=== PATIENT | male | born 2000 | race Caucasian/White ===

== ENCOUNTER 2018-08-31 22:10 | Emergency (ER) | payer OTHER ==
[~2018-08-31] VITALS: Ht 175.3 cm; Wt 72.6 kg
--- OUTSIDE RECORDS SUMMARY | ~2018-08-31 | XMS ---
Demographics + + + | Address | [address] | | | [place] [address] | + + + | Home Phone | | + + + | Preferred Language | Unknown | + + + | Marital Status | Never | + + + | Episcopalian Affiliation | Unknown | + + + | Race | White | + + + | Ethnic Group | Not or | + + + Author + + + | Author | [facility] | + + + | Organization | [facility] | + + + | Address | [address] | | | [place] [address] | + + + | Phone | | + + + Care Team Providers + + + + | Care Channel Business Manager Name | Role | Phone | + + + + | Ladan Scanlon PCP | | + + + + | Joanna Granados | PreferredProvider | | + + + + Allergies and Adverse Reactions + + +-------+ | Name | Reaction | Notes | + + +-------+ | NO KNOWN DRUG ALLERGIES | | | + + +-------+ Plan of Treatment Not available. Medications +--------+ | Active | +--------+ + + + + + + | Name | Start Date | Estimated | SIG | Comments | | | | Completion Date | | | + + + + + + | diphenhydramine | 08/20/2015 | | take 1 capsule | | | HCl 50 mg oral | | | (50 mg) by oral | | | capsule | | | route every 6 | | | | | | hours as needed | | + + + + + + | naproxen 250 mg | 02/09/2016 | | TAKE TWO | | | oral tablet | | | TABLETS BY | | | | | | MOUTH TWICE A | | | | | | DAY WITH FOOD | | | | | | FOR 3 TO 4 DAYS | | | | | | THEN 1 TABLET | | | | | | BY MOUTH TWICE | | | | | | DAILY | | + + + + + + +---------+ | | +---------+ + + + + + + | Name | Start Date | Expiration Date | SIG | Comments | + + + + + + | ibuprofen 600 | 12/01/2015 | 12/08/2015 | take 1 tablet | | | mg oral tablet | | | (600 mg) by | | | | | | oral route with | | | | | | breakfast and | | | | | | lunch | | + + + + + + | naproxen 250 mg | 01/11/2016 | 02/10/2016 | take 2 tablets | | | oral tablet | | | (500 mg) by | | | | | | oral route 2 | | | | | | times per day | | | | | | with food for | | | | | | 3-4 days, then | | | | | | 1 tablet po bid | | | | | | with food | | + + + + + + Problem List + +--------+ + | Description | Status | Onset | + +--------+ + | [place]-Schlatter's disease | Active | 01/11/2016 | | of both knees | | | + +--------+ + | Lump in chest | Active | 09/30/2016 | + +--------+ + Vital Signs +-----+-----+-----+-----+-----+-----+-----+-----+-----+----+-----+-----+-----+-----+ | Ryder | Joel | BP- | BP- | HR( | RR( | Tem | WT | HT | HC | BMI | BSA | BMI | O2 | | e | e | Sys | Ofelia | bpm | rpm | p | | | | | | | Sat | | | | (mm | (mm | ) | ) | | | | | | | Per | (%) | | | | [Hg | [Hg | | | | | | | | | shoshana | | | | | ] | ]) | | | | | | | | | til | | | | | | | | | | | | | | | e | | +-----+-----+-----+-----+-----+-----+-----+-----+-----+----+-----+-----+-----+-----+ | 09/04 | 1:2 | 116 | 62 | 85 | 24 | 99. | 154 | | | | | | 98 | | 4/2 | 9:0 | | mmH | bpm | rpm | 3 F | | | | | | | % | | 017 | 0 | mmH | g | | | | lbs | | | | | | | | | PM | g | | | | | | | | | | | | +-----+-----+-----+-----+-----+-----+-----+-----+-----+----+-----+-----+-----+-----+ | 8/8 | 11: | 102 | 70 | 87 | 16 | 98. | 150 | 69 | | 22. | 1.8 | 61. | 98 | | /20 | 09: | | mmH | bpm | rpm | 6 F | | in | | 150 | 2 | 9 % | % | | 16 | 00 | mmH | g | | | | lbs | | | 9 | m | | | | | AM | g | | | | | | | | kg/ | | | | | | | | | | | | | | | m | | | | +-----+-----+-----+-----+-----+-----+-----+-----+-----+----+-----+-----+-----+-----+ | 6/2 | 1:1 | | | 58 | 16 | 98. | 151 | 69. | | 22. | 1.8 | 62. | | | 8/2 | 7:0 | | | bpm | rpm | 1 F | | 25 | | 14 | 3 | 6 % | | | 016 | 0 | | | | | | lbs | in | | kg/ | m2 | | | | | PM | | | | | | | | | m2 | | | | +-----+-----+-----+-----+-----+-----+-----+-----+-----+----+-----+-----+-----+-----+ | 5/1 | 1:3 | 108 | 65 | 70 | 18 | 99. | 149 | 68. | | 22. | 1.8 | 64. | | | 8/2 | 9:0 | | mmH | bpm | rpm | 2 F | .25 | 75 | | 200 | 121 | 3 % | | | 016 | 0 | mmH | g | | | | | in | | 7 | | | | | | PM | g | | | | | lbs | | | kg/ | m | | | | | | | | | | | | | | m | | | | +-----+-----+-----+-----+-----+-----+-----+-----+-----+----+-----+-----+-----+-----+ | 3/3 | 1:4 | 126 | 66 | 64 | 18 | 98. | 149 | 69 | | 22. | 1.8 | 63. | | | /20 | 8:0 | | mmH | bpm | rpm | 7 F | | in | | 003 | 1 | 7 % | | | 16 | 0 | mmH | g | | | | lbs | | | 2 | m2 | | | | | PM | g | | | | | | | | kg/ | | | | | | | | | | | | | | | m | | | | +-----+-----+-----+-----+-----+-----+-----+-----+-----+----+-----+-----+-----+-----+ Social History + + + + | Name | Description | Comments | + + + + | [place] | | | + + + + | Tobacco | Never smoker | | + + + + History of Procedures + + + + | Date Ordered | Description | Order Status | + + + + | 08/06/2015 12:00 AM | IMMUNIZATION ADMIN | Reviewed | + + + + | 08/06/2015 12:00 AM | Meningococcal B (P) | Reviewed | + + + + | 10/21/2015 12:00 AM | Meningococcal B (VFC) | Reviewed | + + + + | 10/21/2015 12:00 AM | X-RAY EXAM OF FINGER(S) | Reviewed | + + + + | 09/26/2016 12:00 AM | Meningococcal B (VFC) | Reviewed | + + + + Results Summary Not available. History Of Immunizations +-------+-------+-------+------+-------+-------+-------+-------+-------+-------+-----+ | Name | Date | Mfg | Mfg | Trade | Lot# | Route | Inj | Vis | Vis | CVX | | | Admin | Name | Code | Name | | | | Given | Pub | | +-------+-------+-------+------+-------+-------+-------+-------+-------+-------+-----+ | Trume | | Pfize | PFR | Trume | [id number] | Intra | Right | | 01/16/ | 162 | | ruy | 016 | r, | | ruy | 4 | muscu | Arm | 016 | 2015 | | | MenB | | Inc. | | | | lar | | | | | +-------+-------+-------+------+-------+-------+-------+-------+-------+-------+-----+ | DTaP | 02/25/ | Not | NE | Not | | Not | Not | | | 20 | | | 1999 | Enter | | Enter | | Enter | Enter | 001 | 001 | | | | | ed | | ed | | ed | ed | | | | +-------+-------+-------+------+-------+-------+-------+-------+-------+-------+-----+ | Hib | 02/25/ | Not | NE | Not | | Not | Not | | | 48 | | | 1999 | Enter | | Enter | | Enter | Enter | 001 | 001 | | | | | ed | | ed | | ed | ed | | | | +-------+-------+-------+------+-------+-------+-------+-------+-------+-------+-----+ | IPV | 02/25/ | Not | NE | Not | | Not | Not | | | 10 | | | 1999 | Enter | | Enter | | Enter | Enter | 001 | 001 | | | | | ed | | ed | | ed | ed | | | | +-------+-------+-------+------+-------+-------+-------+-------+-------+-------+-----+ | DTaP | 05/04 | Not | NE | Not | | Not | Not | | | 20 | | | /1998 | Enter | | Enter | | Enter | Enter | 001 | 001 | | | | | ed | | ed | | ed | ed | | | | +-------+-------+-------+------+-------+-------+-------+-------+-------+-------+-----+ | Hib | 05/04 | Not | NE | Not | | Not | Not | | | 17 | | | /1998 | Enter | | Enter | | Enter | Enter | 001 | 001 | | | | | ed | | ed | | ed | ed | | | | +-------+-------+-------+------+-------+-------+-------+-------+-------+-------+-----+ | IPV | 05/04 | Not | NE | Not | | Not | Not | | | 10 | | | /1998 | Enter | | Enter | | Enter | Enter | 001 | 001 | | | | | ed | | ed | | ed | ed | | | | +-------+-------+-------+------+-------+-------+-------+-------+-------+-------+-----+ | HepB | 02/25/ | Not | NE | Not | | Not | Not | | | 08 | | | 1998 | Enter | | Enter | | Enter | Enter | 001 | 001 | | | | | ed | | ed | | ed | ed | | | | +-------+-------+-------+------+-------+-------+-------+-------+-------+-------+-----+ | HepB | 05/04 | Not | NE | Not | | Not | Not | | | 08 | | | /1999 | Enter | | Enter | | Enter | Enter | 001 | 001 | | | | | ed | | ed | | ed | ed | | | | +-------+-------+-------+------+-------+-------+-------+-------+-------+-------+-----+ | DTaP | | Not | NE | Not | | Not | Not | | | 20 | | | 000 | Enter | | Enter | | Enter | Enter | 001 | 001 | | | | | ed | | ed | | ed | ed | | | | +-------+-------+-------+------+-------+-------+-------+-------+-------+-------+-----+ | Hib | | Not | NE | Not | | Not | Not | | | 48 | | | 000 | Enter | | Enter | | Enter | Enter | 001 | 001 | | | | | ed | | ed | | ed | ed | | | | +-------+-------+-------+------+-------+-------+-------+-------+-------+-------+-----+ | HepB | | Not | NE | Not | | Not | Not | 0 | 0 | 08 | | | 000 | Enter | | Enter | | Enter | Enter | 001 | 001 | | | | | ed | | ed | | ed | ed | | | | +-------+-------+-------+------+-------+-------+-------+-------+-------+-------+-----+ | IPV | | Not | NE | Not | | Not | Not | 0 | | 10 | | | 000 | Enter | | Enter | | Enter | Enter | 001 | 001 | | | | | ed | | ed | | ed | ed | | | | +-------+-------+-------+------+-------+-------+-------+-------+-------+-------+-----+ | DTaP | 05/16 | Not | NE | Not | | Not | Not | 0 | | 20 | | | /2000 | Enter | | Enter | | Enter | Enter | 001 | 001 | | | | | ed | | ed | | ed | ed | | | | +-------+-------+-------+------+-------+-------+-------+-------+-------+-------+-----+ | Hib | 05/16 | Not | NE | Not | | Not | Not | | | 17 | | | | Enter | | Enter | | Enter | Enter | 001 | 001 | | | | | ed | | ed | | ed | ed | | | | +-------+-------+-------+------+-------+-------+-------+-------+-------+-------+-----+ | MMR | 05/16 | Not | NE | Not | | Not | Not | | | 03 | | | | Enter | | Enter | | Enter | Enter | 001 | 001 | | | | | ed | | ed | | ed | ed | | | | +-------+-------+-------+------+-------+-------+-------+-------+-------+-------+-----+ | Varic | 05/16 | Not | NE | Not | | Not | Not | | | 21 | | gm | | Enter | | Enter | | Enter | Enter | 001 | 001 | | | | | ed | | ed | | ed | ed | | | | +-------+-------+-------+------+-------+-------+-------+-------+-------+-------+-----+ | DTaP | 02/18/ | Not | NE | Not | | Not | Not | | | 20 | | | 2002 | Enter | | Enter | | Enter | Enter | 001 | 001 | | | | | ed | | ed | | ed | ed | | | | +-------+-------+-------+------+-------+-------+-------+-------+-------+-------+-----+ | IPV | 02/18/ | Not | NE | Not | | Not | Not | | | 10 | | | 2002 | Enter | | Enter | | Enter | Enter | 001 | 001 | | | | | ed | | ed | | ed | ed | | | | +-------+-------+-------+------+-------+-------+-------+-------+-------+-------+-----+ | MMR | 02/18/ | Not | NE | Not | | Not | Not | | | 03 | | | 2002 | Enter | | Enter | | Enter | Enter | 001 | 001 | | | | | ed | | ed | | ed | ed | | | | +-------+-------+-------+------+-------+-------+-------+-------+-------+-------+-----+ | Varic | 01/18/ | Not | NE | Not | | Not | Not | | | 21 | | gm | 2010 | Enter | | Enter | | Enter | Enter | 001 | 001 | | | | | ed | | ed | | ed | ed | | | | +-------+-------+-------+------+-------+-------+-------+-------+-------+-------+-----+ | Hep A | 09/21/ | Not | NE | Not | | Not | Not | | | 83 | | | 2006 | Enter | | Enter | | Enter | Enter | 001 | 001 | | | | | ed | | ed | | ed | ed | | | | +-------+-------+-------+------+-------+-------+-------+-------+-------+-------+-----+ | Hep A | 01/18/ | Not | NE | Not | | Not | Not | | | 83 | | | 2010 | Enter | | Enter | | Enter | Enter | 001 | 001 | | | | | ed | | ed | | ed | ed | | | | +-------+-------+-------+------+-------+-------+-------+-------+-------+-------+-----+ | Tdap | 01/18/ | Not | NE | Not | | Not | Not | | | 115 | | | 2010 | Enter | | Enter | | Enter | Enter | 001 | 001 | | | | | ed | | ed | | ed | ed | | | | +-------+-------+-------+------+-------+-------+-------+-------+-------+-------+-----+ | HPV | 01/18/ | Not | NE | Not | | Not | Not | | | 62 | | | 2010 | Enter | | Enter | | Enter | Enter | 001 | 001 | | | | | ed | | ed | | ed | ed | | | | +-------+-------+-------+------+-------+-------+-------+-------+-------+-------+-----+ | HPV | 03/24 | Not | NE | Not | | Not | Not | | | 62 | | | /2010 | Enter | | Enter | | Enter | Enter | 001 | 001 | | | | | ed | | ed | | ed | ed | | | | +-------+-------+-------+------+-------+-------+-------+-------+-------+-------+-----+ | HPV | 07/26/ | Not | NE | Not | | Not | Not | | | 62 | | | 2011 | Enter | | Enter | | Enter | Enter | 001 | 001 | | | | | ed | | ed | | ed | ed | | | | +-------+-------+-------+------+-------+-------+-------+-------+-------+-------+-----+ | Menac | 01/18/ | Not | NE | Not | | Not | Not | 0 | | 136 | | tra | 2010 | Enter | | Enter | | Enter | Enter | 001 | 001 | | | | | ed | | ed | | ed | ed | | | | +-------+-------+-------+------+-------+-------+-------+-------+-------+-------+-----+ | Menac | 12/29/ | Not | NE | Not | | Not | Not | | | 136 | | tra | 2014 | Enter | | Enter | | Enter | Enter | 001 | 001 | | | | | ed | | ed | | ed | ed | | | | +-------+-------+-------+------+-------+-------+-------+-------+-------+-------+-----+ | Trume | 10/20/ | Pfize | PFR | Trume | [id number] | Intra | Right | 10/20/ | 01/16/ | 162 | | ruy | 2015 | r, | | ruy | 4 | muscu | | 2015 | 2014 | | | MenB | | Inc. | | | | lar | Delto | | | | | | | | | | | | id | | | | +-------+-------+-------+------+-------+-------+-------+-------+-------+-------+-----+ | Trume | 09/26/ | Pfize | PFR | Trume | [id number] | Intra | Right | 09/26/ | 01/16/ | 162 | | ruy | 2017 | r, | | ruy | 2 | muscu | | 2017 | 2014 | | | MenB | | Inc. | | | | lar | Upper | | | | | | | | | | | | Arm | | | | +-------+-------+-------+------+-------+-------+-------+-------+-------+-------+-----+ History of Past Illness + + + + | Name | Date of Onset | Comments | + + + + | Skull Fracture | 2009 | | + + + + | thumbfracture | 2009 | right | + + + + | [place]-Schlatter's disease | 01/11/2016 | | | of both knees | | | + + + + | Lump in chest | 09/30/2016 | | + + + + | Well Child Check | Aug 06 2015 1:32PM | | + + + + | Trumenba | Aug 06 2015 1:32PM | | + + + + | Trumenba | Oct 21 2015 1:40PM | | + + + + | Finger injury, right, | Oct 21 2015 1:40PM | | | initial encounter | | | + + + + | Acute left-sided thoracic | Dec 01 2015 1:16PM | | | back pain | | | + + + + | 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, right | | | | leg | | | + + + + | 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, left leg | | | + + + + | Trumenba | Sep 26 2016 1:23PM | | + + + + | Lump in chest | Sep 26 2016 1:23PM | | + + + + Payers + + + + + +---------+ + | Insurance | Company | Plan Name | Plan | Policy | Policy | Start Date | | Name | Name | | Number | Number | Group | | | | | | | | Number | | + + + + + +---------+ + | | [employer] | [employer] | [id number] | [id number] | | N/A | | | | | | | | | | | Health/ohp | | | | | | + + + + + +---------+ + | | [employer] | [employer] | | [id number] | | N/A | | | Health | Health | | | | | + + + + + +---------+ + History of Encounters + + + + | Visit Date | Visit Type | Provider | + + + + | 09/26/2016 | Acute Illness | Ladan L. Rosselle HOOKER LASTER | + + + + | 01/11/2016 | Office Visit | Cate Cook MD | + + + + | 12/01/2015 | Same Day Appt | Ladan WAHLP | + + + + | 10/21/2015 | Same Day Appt | | + + + + | 10/21/2015 | Same Day Appt | Ladan SINGLETON | + + + + | 08/06/2015 | New Patient | Joanna Granados MD | + + + +"
--- OUTSIDE RECORDS SUMMARY | ~2018-08-31 | XMS ---
Demographics + + + | Address | [address] | | | [place] [address] | + + + | Home Phone | | + + + | Preferred Language | Unknown | + + + | Marital Status | Never | + + + | Faith Affiliation | Unknown | + + + | Race | White | + + + | Ethnic Group | Not or | + + + Author + + + | Author | [facility] | + + + | Organization | [facility] | + + + | Address | [address] | | | [place] [address] | + + + | Phone | | + + + Care Team Providers + + + + | Care Network Development Coordinator Name | Role | Phone | + + + + | Ernestine Morgan PCP | | + + + + [...] + + + + + + | Augmentin | 11/16/2016 | | take 1 tablet | | | 875-125 mg oral | | | by oral route | | | tablet | | | every 12 hours | | | | | | for 10 days | | + + + + + + | triamcinolone | 02/28/2017 | | apply to | | | acetonide 0.1 % | | | affected area | | | topical | | | by external | | | ointment | | | route 2 times a | | | | | | day for 14 | | | | | | days | | + + + + + + | ketoconazole 2 | 02/28/2017 | | apply to the | | | % topical cream | | | affected | | | | | | area(s) by | | | | | | topical route 2 | | | | | | times per day | | | | | | until clear | | + + + + + [...] | Onset | + +--------+ + | [place]-Schlatter's disease | Active | 01/11/2016 | | [...] | | e | | +-----+-----+-----+-----+-----+-----+-----+-----+-----+----+-----+-----+-----+-----+ | 02/04 | 11: | 110 | 66 | 84 | 30 | 98. | 162 | | | | | | 97 | | / | 12: | | mmH | bpm | rpm | 1 F | | | | | | | % | | 017 | 00 | mmH | g | | | | lbs | | | | | | | | | AM | g | | | | | | | | | | | | +-----+-----+-----+-----+-----+-----+-----+-----+-----+----+-----+-----+-----+-----+ | 96 | 1:4 | 108 | 70 | 75 | 30 | 98. | 161 | | | | | | 97 | | /20 | 9:0 | | mmH | bpm | rpm | 2 F | | | | | | | % | | 17 | 0 | mmH | g | | | | lbs | | | | | | | | | PM | g | | | | | | | | | | | | +-----+-----+-----+-----+-----+-----+-----+-----+-----+----+-----+-----+-----+-----+ | 6/1 | 5:3 | 104 | 70 | 102 | 30 | 98. | 152 | | | | | | 98 | | 4/2 | 7:0 | | mmH | | rpm | 3 F | | | | | | | % | | 017 | 0 | mmH | g | bpm | | | lbs | | | | | | | | | PM | g | | | | | | | | | | | | +-----+-----+-----+-----+-----+-----+-----+-----+-----+----+-----+-----+-----+-----+ | 5/3 | 3:2 | 118 | 70 | 75 | 30 | 98. | 153 | | | | | | 98 | | 1/2 | 8:0 | | mmH | bpm | rpm | 2 F | | | | | | | % | | 017 | 0 | mmH | g | | | | lbs | | | | | | | | | PM | g | | | | | | | | | | | | +-----+-----+-----+-----+-----+-----+-----+-----+-----+----+-----+-----+-----+-----+ | 4/2 | 1:2 | 116 | 62 | [...] 7 F | | in | | 00 | 1 | 7 % | | | 16 | 0 | mmH | g | | | | lbs | | | kg/ | m2 | | | | | PM | g | | | | | | | | m2 | | | | +-----+-----+-----+-----+-----+-----+-----+-----+-----+----+-----+-----+-----+-----+ Social History + + + + | Name | Description | Comments | + + + + | Fork | | | + + + + [...] Reviewed | + + + + | 11/07/2016 12:00 AM | Breast ultrasound | Reviewed | + + + + | 11/16/2016 12:00 AM | TDAP VACCINE 7 YRS/> IM | Reviewed | + + + + | 11/16/2016 12:00 AM | TDAP VACCINE 7 YRS/> IM | Reviewed | + + + + | 11/30/2016 12:00 AM | IMMUNIZATION ADMIN | Reviewed [...] | muscu | Arm | 016 | 2014 | | | MenB | [...] | | | 48 | | | 1998 | Enter | | Enter | | Enter | Enter | 001 | 001 | | | | | ed | | ed | | ed | ed | | | | +-------+-------+-------+------+-------+-------+-------+-------+-------+-------+-----+ | IPV | 02/25/ | Not | NE | Not | | Not | Not | | | 10 | | | 1998 | Enter | [...] 0 | | 20 | | | 000 | Enter | | Enter | | Enter | Enter | 001 | 001 | | | | | ed | | ed | | ed | ed | | | | +-------+-------+-------+------+-------+-------+-------+-------+-------+-------+-----+ | Hib | | Not | NE | Not | | Not | Not | 0 | 0 | 48 | | | 000 | Enter | | Enter | | Enter | Enter | 001 | 001 | | | | | ed | | ed | | ed | ed | | | | +-------+-------+-------+------+-------+-------+-------+-------+-------+-------+-----+ | HepB | | Not | NE | Not | | Not | Not | 0 | | 08 | | | 000 | [...] | | | 20 | | | /2000 | Enter | | Enter | | Enter | Enter | 001 | 001 | | | | | ed | | ed | | ed | ed | | | | +-------+-------+-------+------+-------+-------+-------+-------+-------+-------+-----+ | Hib | 05/16 | Not | NE | Not | | Not | Not | 0 | | 17 | | | /1999 | Enter | | Enter | | Enter | Enter | 001 | 001 | | | | | ed | | ed | | ed | ed | | | | +-------+-------+-------+------+-------+-------+-------+-------+-------+-------+-----+ | MMR | 05/16 | Not | NE | Not | | Not | Not | | | 03 | | | /1999 | Enter | [...] | | | 20 | | | 2003 | Enter | | Enter | | [...] | | | 83 | | | 2007 | Enter | | Enter | | [...] | Not | Not | | | | | | 2010 | Enter | [...] ruy | 2 | muscu | | 2016 | 2014 | | | MenB | | Inc. | | | | lar | Upper | | | | | | | | | | | | Arm | | | | +-------+-------+-------+------+-------+-------+-------+-------+-------+-------+-----+ | Tdap | 11/16/ | Glaxo | SKB | BOOST | [id number] | Intra | Right | 11/16/ | 07/29/ | 115 | | | 2016 | Clarke | | [id number] | | muscu | | 2016 | 2014 | | | | | Pérez | | | | lar | Delto | | | | | | | | | | | | id | | | | +-------+-------+-------+------+-------+-------+-------+-------+-------+-------+-----+ History of Past Illness + + + + | Name | Date of Onset | Comments | + + + + | Skull fracture | 2010 | | + + + + | thumbfracture | 2009 | right | + + + + | [place]-Schneoer's disease | 01/11/2016 | | | of [...] | + + + + | Lump of R breast | Nov 02 2016 3:22PM | | + + + + | TdaP | Nov 16 2016 5:29PM | | + + + + | Bitten by dog, initial | Nov 16 2016 5:29PM | | | encounter | | | + + + + | Tinea corporis | Feb 28 2017 11:02AM | | + + + + Payers [...] + | | [employer] | [employer] | [id number] | [id number] | | N/A | | | | | | | | | | | Health/ohp | | | | | | + + + + + +---------+ + | | [employer] | [employer]IF | | [id number] | | N/A | + + + + + +---------+ + | | [employer] | | [id number] | | N/A | | | Health | Health | | | | | + + + + + +---------+ + History of Encounters + + + + | Visit Date | Visit Type | Provider | + + + + | 02/28/2017 | Same Day Appt | Ernestine Pariswarren CRITICAL POWER INSTALL TECHNICIAN | + + + + | 02/08/2017 | Office Visit | Ernestine Warner Eddie WAHLP | + + + + | 11/16/2016 | Same Day Appt | Ernestine Warner Eddie WAHLP | + + + + | 11/02/2016 | Office Visit | Ernestine Warner Eddie WAHLP | + + + + | 09/26/2016 | Acute Illness | Ladan WAHLP | + + + + | 01/11/2016 | Office Visit | Cate Cook MD | + + + + | 12/01/2015 | Same Day Appt | Ladan L. Rosselle CRITICAL POWER INSTALL TECHNICIAN | + + + + | 10/21/2015 | Same Day Appt | | + + + + | 10/21/2015 | Same Day Appt | Ladan Scanlon CRITICAL POWER INSTALL TECHNICIAN | + + + + | 08/06/2015 | New Patient | Joanna Granados MD | + + + +"
--- OUTSIDE RECORDS SUMMARY | ~2018-08-31 | XMS ---
Demographics + + + | Address | [address] | | | [place] [address] | + + + | Home Phone | | + + + | Preferred Language | Unknown | + + + | Marital Status | Never | + + + | Yazdanism Affiliation | Unknown | + + + | Race | White | + + + | Ethnic Group | Not or | + + + Author + + + | Author | [facility] | + + + | Organization | [facility] | + + + | Address | [address] | | | [place] [address] | + + + | Phone | | + + + Care Team Providers + + + + | Care Medicaid Plan Compliance Director Name | Role | Phone | + + + + | Ernestine Morgan PCP | | + + + + | Joanna Granados | PreferredProvider | | + + + + Allergies and Adverse Reactions + + +-------+ | Name | Reaction | Notes | + + +-------+ | NO KNOWN DRUG ALLERGIES | | | + + +-------+ Plan of Treatment + + + + + + | Planned | Comments | Planned Date | Planned Time | Plan/Goal | | Activity | | | | | + + + + + + | Breast | | 11/07/2016 | 12:00 AM | | | ultrasound | | | | | + + + + + + Medications +--------+ | Active | +--------+ + [...] | Onset | + +--------+ + | 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 | 151 | 69. | | 22. | 1.8 | 62. | | | 8/2 | 7:0 | | | bpm | rpm | 1 F | | 25 | | 137 | 294 | 6 % | | | 016 | 0 | | | | | | lbs | in | | 9 | | | | | | PM | | | | | | | | | kg/ | m | | | | | | | | | | | | | | m | | | | +-----+-----+-----+-----+-----+-----+-----+-----+-----+----+-----+-----+-----+-----+ | 5/1 | 1:3 | 108 | 65 | 70 | 18 | 99. | 149 | 68. | | 22. | 1.8 | 64. | | | 8/2 | 9:0 | | mmH | bpm | rpm | 2 F | .25 | 75 | | 20 | 1 | 3 % | | | 016 | 0 | mmH | g | | | | | in | | kg/ | m2 | | | | | PM | g | | | | | lbs | | | m2 | | | | +-----+-----+-----+-----+-----+-----+-----+-----+-----+----+-----+-----+-----+-----+ | 3/3 | 1:4 | 126 | 66 | 64 | 18 | 98. | 149 | 69 | | 22. | 1.8 | 63. | | | /20 | 8:0 | | mmH | bpm | rpm | 7 F | | in | | 003 | 139 | 7 % | | | 16 | 0 | mmH | g | | | | lbs | | | 2 | | | | | | PM | g | | | | | | | | kg/ | m | | | | | | | | | | | | | | m | | | | +-----+-----+-----+-----+-----+-----+-----+-----+-----+----+-----+-----+-----+-----+ Social History + + + + | Name | Description | Comments | + + + + | Dudley | | | + + + + [...] | | Not | Not | | 1/1/0 | 08 | | | 000 | Enter | | Enter | | Enter | Enter | 001 | 001 | | | | | ed | | ed | | ed | ed | | | | +-------+-------+-------+------+-------+-------+-------+-------+-------+-------+-----+ | IPV | | Not | NE | Not | | Not | Not | | | 10 | | | 000 | Enter | | Enter | | Enter | Enter | 001 | 001 | | | | | ed | | ed | | ed | ed | | | | +-------+-------+-------+------+-------+-------+-------+-------+-------+-------+-----+ | DTaP | 05/16 | Not | NE | Not | | Not | Not | | | 20 | | | | Enter | | [...] | | | 03 | | | 2003 | Enter | [...] 4 | muscu | | 2015 | | | MenB | | Inc. | | | | lar | Delto | | | | | | | | | | | | id | | | | +-------+-------+-------+------+-------+-------+-------+-------+-------+-------+-----+ | Trume | 09/26/ | Pfize | PFR | Trume | [id number] | Intra | Right | 09/26/ | 01/16/ | 162 | | ruy | 2016 | r, | | ruy | 2 | muscu | | 2016 | | | MenB | | Inc. | | | | lar | Upper | | | | | | | | | | | | Arm | | | | +-------+-------+-------+------+-------+-------+-------+-------+-------+-------+-----+ History of Past Illness + + + + | Name | Date of Onset | Comments | + + + + | Skull fracture | 2009 | | + + + + | thumbfracture | 2009 | right | + + + + | Sudarshan-Schlatter's disease | 01/11/2016 | | | of [...] 3:22PM | | + + + + Payers [...] + | | [employer] | [employer] | [id number] | [id number] | | N/A | | | | | | | | | | | Health/ohp | | | | | | + + + + + +---------+ + | | [employer] | [employer] | | [id number] | | N/A | | | Health | Health | | | | | + + + + + +---------+ + History of Encounters + + + + | Visit Date | Visit Type | Provider | + + + + | 11/02/2016 | Office Visit | Ernestine SINGLETON | + + + + | 09/26/2016 | Acute Illness | Ladan Mehtajose maria SINGLETON | + + + + | 01/11/2016 | Office Visit | Cate Cook MD | + + + + | 12/01/2015 | Same Day Appt | Ladan Mirza SINGLETON | + + + + | 10/21/2015 | Same Day Appt | | + + + + | 10/21/2015 | Same Day Appt | Ladan SaabChristiano SINGLETON | + + + + | 08/06/2015 | New Patient | Joanna Granados MD | + + + +"
--- OUTSIDE RECORDS SUMMARY | ~2018-08-31 | XMS ---
Demographics + + + | Address | [address] | | | [place] [address] | + + + | Home Phone | | + + + | Preferred Language | Unknown | + + + | Marital Status | Never | + + + | Denominational Affiliation | Unknown | + + + | Race | White | + + + | Ethnic Group | Not or | + + + Author + + + | Author | [facility] | + + + | Organization | [facility] | + + + | Address | [address] | | | [place] [address] | + + + | Phone | | + + + Care Team Providers + + + + | Care Automation Technician Name | Role | Phone | + [...] Comments | + + + + | [place] | | | + + + + [...] 11/07/2016 12:00 AM | Breast ultrasound | Returned | + + + + Results Summary [...] | | | 08 | | | | Enter | | Enter | | Enter | Enter | 001 | 001 | | | | | ed | | ed | | ed | ed | | | | +-------+-------+-------+------+-------+-------+-------+-------+-------+-------+-----+ | DTaP | | Not | NE | Not | | Not | Not | 0 | 0 | 20 | | | 000 | Enter | | Enter | | Enter | Enter | 001 | 001 | | | | | ed | | ed | | ed | ed | | | | +-------+-------+-------+------+-------+-------+-------+-------+-------+-------+-----+ | Hib | | Not | NE | Not | | Not | Not | 0 | | 48 | | | 000 | Enter | | Enter | | Enter | Enter | 001 | 001 | | | | | ed | | ed | | ed | ed | | | | +-------+-------+-------+------+-------+-------+-------+-------+-------+-------+-----+ | HepB | | Not | NE | Not | | Not | Not | | 0 | 08 | | | [...] | | 21 | | gm | /1999 | Enter | | Enter [...] Not | Not | | 1/1/0 | 62 | | | /2010 | [...] | | + + + + | Dodie | Aug 06 2015 1:32PM | | [...] + + + + | Trumenba | Apr 24 2017 1:23PM | | + + + + [...] + | | [employer] | [employer] | [id number] | [id number] | | N/A | | | | | | | | | | | Health/ohp | | | | | | + + + + + +---------+ + | | [employer] | [employer] | | [id number] | | N/A | | | Health [...] 12/01/2015 | Same Day Appt | Ladan Scanlon CONTRACT TECHNICAL WRITER | + + + + | 10/21/2015 | Same Day Appt | | + + + + | 10/21/2015 | Day Appt | Ladan Scanlon CONTRACT TECHNICAL WRITER | + + + + | 08/06/2015 | New Patient | Joanna Granados MD | + + + +"
--- OUTSIDE RECORDS SUMMARY | ~2018-08-31 | XMS ---
Demographics + + + | Address | [address] | | | [place] [address] | + + + | Home Phone | | + + + | Preferred Language | Unknown | + + + | Marital Status | Never | + + + | Mosque Affiliation | Unknown | + + + | Race | White | + + + | Ethnic Group | Not or | + + + Author + + + | Author | [facility] | + + + | Organization | [facility] | + + + | Address | [address] | | | [place] [address] | + + + | Phone | | + + + Care Team Providers + + + + | Care Apricot Packer Name | Role | Phone | + [...] | Onset | + +--------+ + | Nice-Schlatter's disease | Active | 01/11/2016 | | [...] Comments | + + + + | [place] | | | + + + + [...] 11:02AM | | + + + + | Leg Pain | Feb 08 2017 1:37PM | | + + + + Payers [...] + | | [employer] | [employer] | [id number] | [id number] | | N/A | | | | | | | | | | | Health/ohp | | | | | | + + + + + +---------+ + | | SAIF | SAIF | | [id number] | | N/A | + + + + + +---------+ + | | [employer] | [employer] | | [id number] | | N/A | | | Health | Health | | | | | + + + + + +---------+ + History of Encounters + + + + | Visit Date | Visit Type | Provider | + + + + | 02/28/2017 | Same Day Appt | Ernestine Timmy SINGLETON | + + + + | 02/08/2017 | Office Visit | Ernestine SINGLETON | + + + + | 11/16/2016 | Day Appt | Ernestine Timmy SINGLETON | + + + + | 11/02/2016 | Office Visit | Ernestine Timmy SINGLETON | + + + + | 09/26/2016 | Acute Illness | Ladan Scanlon STOCK SAW OPERATOR | + + + + | 01/11/2016 | Office Visit | Cate Cook MD | + + + + | 12/01/2015 | Same Day Appt | Ladan SINGLETON | + + + + | 10/21/2015 | Same Day Appt | | + + + + | 10/21/2015 | Same Day Appt | Ladan SINGLETON | + + + + | 08/06/2015 | New Patient | Joanna Granados MD | + + + +"
--- OUTSIDE RECORDS SUMMARY | ~2018-08-31 | XMS ---
Demographics + + + | Address | [address] | | | [place] [address] | + + + | Home Phone | | + + + | Preferred Language | Unknown | + + + | Marital Status | Never | + + + | Alevism Affiliation | Unknown | + + + | Race | White | + + + | Ethnic Group | Not or | + + + Author + + + | Author | [facility] | + + + | Organization | [facility] | + + + | Address | [address] | | | [place] [address] | + + + | Phone | | + + + Care Team Providers + + + + | Care Country Singer Name | Role | Phone | + [...] | | e | | +-----+-----+-----+-----+-----+-----+-----+-----+-----+----+-----+-----+-----+-----+ | 6/1 | 5:3 [...] Comments | + + + + | Sarah | | | + + + + [...] | | | 20 | | | 1998 | Enter | | Enter | | Enter | Enter | 001 | 001 | | | | | ed | | ed | | ed | ed | | | | +-------+-------+-------+------+-------+-------+-------+-------+-------+-------+-----+ | Hib | 02/25/ | Not | NE | Not | | Not | Not | | 1/1/0 | 48 | | | 1998 | [...] | | | 08 | | | /1998 | Enter | | Enter | | Enter | Enter | 001 | 001 | | | | | ed | | ed | | ed | ed | | | | +-------+-------+-------+------+-------+-------+-------+-------+-------+-------+-----+ | DTaP | 2 | Not | NE | Not | | Not | Not | 0 | 0 | 20 | | | 000 | Enter | | Enter | | Enter | Enter | 001 | 001 | | | | | ed | | ed | | ed | ed | | | | +-------+-------+-------+------+-------+-------+-------+-------+-------+-------+-----+ | Hib | 2 | Not | NE | Not | | Not | Not | 0 | 0 | 48 | | | 000 | Enter | | Enter | | Enter | Enter | 001 | 001 | | | | | ed | | ed | | ed | ed | | | | +-------+-------+-------+------+-------+-------+-------+-------+-------+-------+-----+ | HepB | 2 | Not | NE | Not | [...] | MALGORZ[place] | | muscu | | 2017 | 2015 | | | | | Pérez | [...] | | | + + + + Payers [...] + | | [employer] | [employer] | [id number] | [id number] | | N/A | | | | | | | | | | | Health/ohp | | | | | | + + + + + +---------+ + | | SAIF | SAIF | | [id number] | | N/A | + + + + + +---------+ + | | [employer] | [employer]a | | [id number] | | N/A | | | Health | Health | | | | | + + + + + +---------+ + History of Encounters + + + + | Visit Date | Visit Type | Provider | + + + + | 11/16/2016 | Day Appt | Ernestine SINGLETON | + + + + | 11/02/2016 | Office Visit | Ernestine SINGLETON | + + + + | 09/26/2016 | Acute Illness | Ladan SINGLETON | + + + + | 01/11/2016 | Office Visit | Cate Cook MD | + + + + | 12/01/2015 | Same Day Appt | Ladan Scanlon GYMNASTIC COACH | + + + + | 10/21/2015 | Day Appt | | + + + + | 10/21/2015 | Day Appt | Ladan Scanlon GYMNASTIC COACH | + + + + | 08/06/2015 | New Patient | Joanna Granados MD | + + + +"
--- OUTSIDE RECORDS SUMMARY | ~2018-08-31 | XMS ---
Demographics + + + | Address | [address] | | | [place] [address] | + + + | Home Phone | | + + + | Preferred Language | Unknown | + + + | Marital Status | Never | + + + | Jewish Affiliation | Unknown | + + + | Race | White | + + + | Ethnic Group | Not or | + + + Author + + + | Author | [facility] | + + + | Organization | [facility] | + + + | Address | [address] | | | [place] [address] | + + + | Phone | | + + + Care Team Providers + + + + | Care Trestle Mechanic Name | Role | Phone | + [...] | Onset | + +--------+ + | [place]-Schlatter's disease | Active | 01/11/2016 | | of both knees | | | + +--------+ + | Lump in chest | Active | 09/30/2016 | + +--------+ + Vital Signs +-----+-----+-----+-----+-----+-----+-----+-----+-----+----+-----+-----+-----+-----+ | Rdyer | Joel | BP- | BP- | [...] Comments | + + + + | [place] | | | + + + + [...] right | + + + + | [place]-Schlatter's disease | 01/11/2016 | | | of [...] + | | [employer] | [employer] | [id number] | [id number] | | N/A | | | | | | | | | | | Health/ohp | | | | | | + + + + + +---------+ + | | [employer] | [employer] | | [id number] | | N/A | | | Health | Health | | | | | + + + + + +---------+ + History of Encounters + + + + | Visit Date | Visit Type | Provider | + + + + | 09/26/2016 | Acute Illness | Ladan L. Rosselle DIRECTOR OF TEACHING AND LEARNING | + + + + | 01/11/2016 [...]
[~2018-08-31 22:10] MED LIST: CHLORPROMAZINE10 MG; PREDNISONE20 MG PO
== END 2018-09-01 00:35 | disposition home or self-care (01) ==
LOC: ED 22:10
DX: R42 Dizziness and giddiness (principal)
CPT/HCPCS: 80053; 81001; 85025; 87502; 99283

== ENCOUNTER 2018-09-19 21:57 | Emergency (ER) | payer OTHER ==
[~2018-09-19] VITALS: Ht 175.3 cm; Wt 68.0 kg
[2018-09-19] MEDS ORDERED: PENICILLIN V P500 MG PO (22:13)
== END 2018-09-19 22:19 | disposition home or self-care (01) ==
LOC: ED 21:57
DX: K08.89 Other specified disorders of teeth and supporting structures (principal); J06.9 Acute upper respiratory infection, unspecified; F31.9 Bipolar disorder, unspecified; F90.9 Attention-deficit hyperactivity disorder, unspecified type
CPT/HCPCS: 99283

== ENCOUNTER 2018-09-24 10:29 | Emergency (ER) | payer OTHER ==
[~2018-09-24] VITALS: Ht 175.3 cm; Wt 68.0 kg
[~2018-09-24 10:29] MED LIST changes: +PENICILLIN V P500 MG PO
== END 2018-09-24 14:16 | disposition home or self-care (01) ==
LOC: ED 10:29
DX: F32.9 Major depressive disorder, single episode, unspecified (principal); Z79.899 Other long term (current) drug therapy
CPT/HCPCS: 80053; 80176; 81001; 84443; 85025; 99285; G0480

== ENCOUNTER 2021-02-22 12:31 | Emergency (ER) | payer MEDICAID ==
[~2021-02-22] VITALS: Ht 175.3 cm; Wt 68.0 kg
== END 2021-02-22 16:25 | disposition home or self-care (01) ==
LOC: ED 12:31
PROC: 0HQ0XZZ Repair Scalp Skin, External Approach (ICD-10-PCS; principal; 2021-02-22)
DX: S01.01XA Laceration without foreign body of scalp, initial encounter (principal); V00.131A Fall from skateboard, initial encounter; Y93.51 Activity, roller skating (inline) and skateboarding
CPT/HCPCS: 12002; 70450; 72125; 99283-25